=== PATIENT | male | born 1990 | race Two or more races ===

== ENCOUNTER 2019-02-26 20:44 | Emergency (ER) | payer SELFPAY ==
[~2019-02-26] VITALS: Ht 167.6 cm; Wt 111.1 kg
[2019-02-26 21:09] VITALS: BP 159/100
[2019-02-26 21:34] LABS: BARBITURATES NEG (NEG); BENZODIAZEPINES NEG (NEG); CANNABINOIDS NEG (NEG); COCAINE NEG (NEG); METHADONE NEG (NEG); OPIATES POS (NEG); PHENCYCLIDINE NEG (NEG)
[2019-02-26 21:35] LABS: AMPHETAMINE/METHAMPHETAMINE POS (NEG)
--- NOTE | 2019-02-26 21:59 | PHYS DOC ---
Past Medical History Past Medical History: Other Additional Past Medical Histor: Chornic low back pain since injury at age 17. Past Surgical History: No Surgical History Additional Information: SMOKES METH Alcohol Use: None Drug Use: Methamphetamine, Opiates, Other Social History Narrative: [id number] USE Adult General Chief Complaint Chief Complaint: SUBSTANCE ABUSE HPI HPI Patient is a 28 year old male patient who presents to the ED today requesting detox for drug use. Patient reports he has been smoking meth and using fentanyl and oxycodone from the streets since 2016. He states he has previously tried to stop drug use cold but relapsed. He reports today he got kicked out of his brother's house and is homeless. Denies any suicidal or homicidal idea tions. Review of Systems Review of Systems Constitutional: Denies fever or chills [] Eyes: Denies change in visual acuity, redness, or eye pain [] HENT: Denies nasal congestion or sore throat [] Respiratory: Denies cough or shortness of breath [] Cardiovascular: No additional information not addressed in HPI [] GI: Denies abdominal pain, nausea, vomiting, bloody stools or diarrhea [] : Denies dysuria or hematuria [] Musculoskeletal: Denies back pain or joint pain [] Integument: Denies rash or skin lesions [] Neurologic: Denies headache, focal weakness or sensory changes [] Endocrine: reports drug use All other systems were reviewed and found to be within normal limits, except as documented in this note. Allergies Allergies Allergies Coded Allergies Type Severity Reaction Last Updated Verified No Known Drug Allergies 05/06/13 No Physical Exam Physical Exam Constitutional: Well developed, well nourished, no acute distress, non-toxic appearance. [] HENT: Normocephalic, atraumatic, bilateral external ears normal, oropharynx moist, no oral exudates, nose normal. [] Eyes: PERRLA, EOMI, conjunctiva normal, no discharge. [] Neck: Normal range of motion, no tenderness, supple, no stridor. [] Cardiovascular:Heart rate regular rhythm, no murmur [] Lungs & Thorax: Bilateral breath sounds clear to auscultation [] Abdomen: Bowel sounds normal, soft, no tenderness, no masses, no pulsatile ma sses. [] Skin: Warm, dry, no erythema, no rash. [] Back: No tenderness, no CVA tenderness. [] Extremities: No tenderness, no cyanosis, no clubbing, ROM intact, no edema. [] Neurologic: Alert and oriented X 3, normal motor function, normal sensory function, no focal deficits noted. [] Psychologic: flat affect, depressed mood. Current Patient Data Vital Signs Vital Signs Date Time Temp Pulse Resp B/P (MAP) Pulse Ox O2 Delivery O2 Flow Rate FiO2 02/26/19 21:09 99.7 118 22 159/100 (119) 98 Room Air 99.7 Lab Values Laboratory Tests Test 02/26/19 21:05 Urine Opiates Screen Pos (NEG) Urine Methadone Screen Neg (NEG) Urine Barbiturates Neg (NEG) Urine Phencyclidine Screen Neg (NEG) Urine Amphetamine/Methamphetamine Pos (NEG) Urine Benzodiazepines Screen Neg (NEG) Urine Cocaine Screen Neg (NEG) Urine Cannabinoids Screen Neg (NEG) Urine Ethyl Alcohol Neg (NEG) EKG EKG [] Radiology/Procedures Radiology/Procedures [] Course & Med Decision Making Course & Med Decision Making Pertinent Labs and Imaging studies reviewed. (See chart for details) This is a 28-year-old male patient presenting to the ED today requesting help with the drugs. Patient reports since 2016 he has been using methamphetamine, oxycodone and fentanyl from the streets. Today he got kicked out from his brother's house and is currently homeless but in the Ed with family members including a cousin who is also doing drugs with him UDS + for Meth and opiates Kim from the PAT team in the ED to talk to patient. Patient will go home and f/u with [facility] tomorrow. Dragon Disclaimer Dragon Disclaimer This electronic medical record was generated, in whole or in part, using a voice recognition dictation system. Departure Departure Impression: Primary Impression: Drug abuse Additional Impression: Homeless Disposition: 01 HOME, SELF-CARE Condition: STABLE Referrals: NON,STAFF (PCP) follow up with [facility] tomorrow Patient Instructions: Drug Abuse, FAQs Additional Instructions: Please follow up with Adult detox unit tomorrow. Scripts No Active Prescriptions or Reported Meds Problem Qualifiers MICHAEL BAUMANN JONO Feb 26, 2019 21:59
== END 2019-02-26 22:35 | disposition home or self-care (01) ==
LOC: ER 20:44
DX: F15.10 Other stimulant abuse, uncomplicated (principal); G89.29 Other chronic pain; F17.200 Nicotine dependence, unspecified, uncomplicated; Z59.0 Homelessness
CPT/HCPCS: 80307; 99284